=== PATIENT | male | born 1980 | race Hispanic/Latino ===

== ENCOUNTER 2020-08-10 15:03 | Emergency (ER) | payer OTHER ==
[2020-08-10] MEDS ORDERED: LIDOCAINE HCL 1% 20 ML VIAL ONE (15:31)
[2020-08-10] MEDS ORDERED: ONDANSETRON ODT 4 MG TAB ONE (15:40)
[2020-08-10] MEDS ORDERED: MORPHINE SULFATE 4 MG/1ML SYG ONE (15:41)
[2020-08-10] MEDS ORDERED: SULFAMETHOX-TMP DS 800/160 TAB ONE (16:10)
== END 2020-08-10 16:34 | disposition home or self-care (01) ==
LOC: EDH 15:03
DX: L02.211 Cutaneous abscess of abdominal wall (principal)
CPT/HCPCS: 10060; 87070; 87076; 96372; 99283; J2270